=== PATIENT | male | born 1960 | race Hispanic/Latino ===

== ENCOUNTER → 2024-04-28 | Outpatient (CLI) | payer OTHER ==
[2024-04-28 15:51] LABS: ALBUMIN 3.4 g/dL (3.5-5.0); BILIRUBIN,TOTAL 0.7 mg/dL (0.2-1.0); CREATININE 1.1 mg/dL (0.5-1.3); POTASSIUM 4.2 mmol/L (3.5-5.1)
== END | disposition home or self-care (01) ==
LOC: LAB 13:04
PROVIDERS: ATTEND Internal Medicine Cardiovascular Disease
DX: I95.1 Orthostatic hypotension (principal)
CPT/HCPCS: 36415; 80053

== ENCOUNTER → 2024-04-29 | Outpatient (CLI) | payer OTHER | END | disposition home or self-care (01) | LOC: SHCH 08:14 → EDUNIT# 09:00 | PROVIDERS: ATTEND Internal Medicine Cardiovascular Disease | DX: I48.0 Paroxysmal atrial fibrillation (principal); R01.1 Cardiac murmur, unspecified | CPT/HCPCS: 93306 ==

== ENCOUNTER → 2024-05-01 | Outpatient (CLI) | payer OTHER ==
[~2024-05-01] MED LIST: IOHEXOL 350 MG/ML 100ML INFUS..BTL IV ONE; METOPROLOL TARTRATE 1 MG/ML 5ML VIAL IV ONE
== END | disposition home or self-care (01) ==
LOC: RAH 08:31 → EDUNIT# 09:00
PROVIDERS: ATTEND Internal Medicine Cardiovascular Disease
DX: I48.0 Paroxysmal atrial fibrillation (principal); I49.9 Cardiac arrhythmia, unspecified
CPT/HCPCS: 75574; J3490 ×3; Q9967

== ENCOUNTER 2024-07-05 05:55 | Day surgery (SDC) | payer OTHER ==
[2024-07-03 13:56] LABS: BASOPHILS # (AUTO) 0.03 K/uL (0.00-0.20); BASOPHILS % (AUTO) 0.5 % (0.0-5.0); EOSINOPHILS # (AUTO) 0.18 K/uL (0.00-0.70); EOSINOPHILS % (AUTO) 2.8 % (0.0-8.0); HEMATOCRIT 44.1 % (42-54); IMMATURE GRANULOCYTE ABSOLUTE 0.01 K/uL (0-1); LYMPHOCYTES # (AUTO) 1.8 K/uL (1.0-4.8); LYMPHOCYTES % (AUTO) 27.3 % (21.0-51.0); MEAN CORPUSCULAR HEMOGLOBIN 30.9 pg (27.0-33.0); MEAN CORPUSCULAR HGB CONC 32.9 g/dL (32.0-36.0); MEAN CORPUSCULAR VOLUME 93.8 fL (79-99); MONOCYTES # (AUTO) 0.5 K/uL (0.1-1.0); NEUTROPHILS # (AUTO) 4.1 K/uL (1.8-7.7); NEUTROPHILS % (AUTO) 62.2 % (40.0-77.0); PLATELET COUNT (AUTO) 197 K/uL (130-400); RED CELL DISTRIBUTION WIDTH 12.8 % (11.0-15.5); WHITE BLOOD COUNT (AUTO) 6.5 K/uL (4.8-10.8)
[2024-07-03 14:04] LABS: CREATININE 1.3 mg/dL (0.5-1.3); POTASSIUM 4.6 mmol/L (3.5-5.1)
[2024-07-03 14:05] VITALS: BP 180/97; PULSE 80; RESP 19; TEMP 98
[2024-07-03 14:24] LABS: B-TYPE NATRIURETIC PEPTIDE 56 pg/mL (0-100)
[2024-07-03 14:53] LABS: INR 2.35 (0.85-1.15); PROTHROMBIN TIME 23.8 SEC (9.6-11.6)
[2024-07-03 14:54] LABS: PARTIAL THROMBOPLASTIN TIME 25.9 SEC (26.3-35.5)
[2024-07-05] VITALS (11 sets, daily range): BP systolic 116–147; BP diastolic 66–76; PULSE 75–81; RESP 14–17; TEMP 97.1–97.8
[~2024-07-05] VITALS: Ht 170.2 cm; Wt 92.4 kg
[~2024-07-05 05:55] MED LIST changes: +ACET-2743 PO; +APIX5TAB PO; +ASPI-1443 PO; +ATOR40TA71 PO; +CALC-1125 PO; +EMPA25TA PO; +FAMO40TA7 PO; +FLUD0.1T2 PO; +GABA-529 PO; +INSLAN SQ; -IOHEXOL 350 MG/ML 100ML INFUS..BTL IV ONE; +MAGN400C PO; -METOPROLOL TARTRATE 1 MG/ML 5ML VIAL IV ONE; +MIDO10TA PO; +OXYB5TAB20 PO; +PROP225C24 PO; +REPA1TAB5 PO; +SEMA1PEN3 SQ
[2024-07-05 06:49] LABS: INR 0.96 (0.85-1.15); PROTHROMBIN TIME 10.4 SEC (9.6-11.6)
[2024-07-05 06:50] LABS: PARTIAL THROMBOPLASTIN TIME 25.1 SEC (26.3-35.5)
[2024-07-05] MEDS ORDERED: HEParin-NS 1,000 UNIT/500 ML 1,000 ML IV ONE (07:15)
[2024-07-05] MEDS ORDERED: NITROGLYCERIN 50MG VIAL ONE (07:15)
[2024-07-05] MEDS ORDERED: LIDOCAINE HCL 400MG/20ML VIAL ONE (07:15)
[2024-07-05] MEDS ORDERED: IOHEXOL 350 MG/ML 100ML INFUS..BTL IV ONE (07:15)
[2024-07-05] MEDS ORDERED: HEParin 10,000 UNIT/10ML (1,000 UNIT/ML) VIAL ONE (07:15)
[2024-07-05] MEDS ORDERED: niCARDIpine 25MG INJ IV ONE (07:20)
[2024-07-05] MEDS ORDERED: MIDAZOLAM HCL 1 MG/ML 2ML VIAL ONE (07:38)
[2024-07-05] MEDS ORDERED: FENTanyl CITRate PF 50 MCG/1 ML 2ML VIAL ONE (07:38)
[2024-07-05] MEDS: 0.9%NACL 1000ML 1,000 ML IV SCH (08:37)
[2024-07-05] MEDS ORDERED: DEXTROSE 50%-WATER 50 ML DISP.SYRIN IV PRN (09:30)
[2024-07-05] MEDS ORDERED: GLUCAGON 1MG KIT 1 MG ML IM PRN (09:30)
== END 2024-07-05 12:35 | disposition home or self-care (01) ==
LOC: DAH 05:55
PROVIDERS: ATTEND Internal Medicine Cardiovascular Disease
DX: I48.0 Paroxysmal atrial fibrillation (principal); I25.118 Atherosclerotic heart disease of native coronary artery with other forms of angina pectoris; R42 Dizziness and giddiness; R07.9 Chest pain, unspecified; I49.9 Cardiac arrhythmia, unspecified; I49.1 Atrial premature depolarization; E11.9 Type 2 diabetes mellitus without complications; I95.1 Orthostatic hypotension; E78.5 Hyperlipidemia, unspecified; Z86.73 Personal history of transient ischemic attack (TIA), and cerebral infarction without residual deficits; Z79.4 Long term (current) use of insulin; Z79.01 Long term (current) use of anticoagulants; Z79.82 Long term (current) use of aspirin; Z79.899 Other long term (current) drug therapy
CPT/HCPCS: 80048; 83880; 85025; 85610 ×2; 85730 ×2; 36415 ×2; 71045; 93005; 93454; 82948 ×2; C1769; C1894 ×2; A4649; J3010; J3490 ×3; J7030; J1644 ×2; J2250; Q9967; A4215; A4222; A4221; A4663; A4216; A4606; Q9965; A4223 ×3; 99156; 99157